=== PATIENT | male | born 1995 | race Caucasian/White ===

== ENCOUNTER 2020-01-18 23:41 | Emergency (ER) | payer SELFPAY ==
--- NOTE | 2020-01-18 23:47 | CTR_ITS ---
PROCEDURE INFORMATION: Exam: CT Head Without Contrast Exam date and time: 01/18/2020 12:12 AM Age: 24 years old Clinical indication: Injury or trauma; Other: Hit head/seizure after; Blunt trauma (contusions or hematomas); Consciousness not specified; Altered mental status/memory loss; Additional info: Head injury + sz TECHNIQUE: Imaging protocol: Computed tomography of the head without contrast. Radiation optimization: All CT scans at this facility use at least one of these dose optimization techniques: automated exposure control; mA and/or kV adjustment per patient size (includes targeted exams where dose is matched to clinical indication); or iterative reconstruction. ADDITIONAL STUDY INFORMATION: Total DLP (mGy-cm): 983.9 COMPARISON: CT head wo con* [id number] 12/08/2018 4:27 AM FINDINGS: Examination is limited by artifacts from patient motion. Evaluation of the brain demonstrates no convincing areas of abnormal density when allowing for artifacts from patient motion. Size of ventricular system appears within normal limits for the patient's stated age. No definite depressed calvarial fracture is demonstrated. Rounded density in each maxillary sinus is most compatible with polyp or retention cyst. Visualized mastoid air cells demonstrate no significant opacification. CT/CT head wo con* [id number] IMPRESSION: No definite acute intracranial process is demonstrated when allowing for artifacts from patient motion. Radiation Dose CTDIVOL = (mGy): DLP = 983.9 (mGy-cm)
[2020-01-18 23:50] VITALS: BP 165/95; PULSE 78; RESP 26; TEMP 36.9; O2SAT 97; BMI 38.5
--- NOTE | 2020-01-18 23:54 | CTR_ITS ---
PROCEDURE INFORMATION: Exam: CT Cervical Spine Without Contrast Exam date and time: 01/18/2020 12:12 AM Age: 24 years old Clinical indication: Pain and injury or trauma; Other: Hit head/seizure after; Blunt trauma; Neck pain TECHNIQUE: Imaging protocol: Computed tomography images of the cervical spine without contrast. Radiation optimization: All CT scans at this facility use at least one of these dose optimization techniques: automated exposure control; mA and/or kV adjustment per patient size (includes targeted exams where dose is matched to clinical indication); or iterative reconstruction. ADDITIONAL STUDY INFORMATION: Total DLP (mGy-cm): 1098.87 COMPARISON: CT Cervical Spine wo* [id number] 01/19/2018 2:04 AM FINDINGS: Alignment of cervical bodies appears within normal limits. Height of cervical bodies appears within normal limits. Straightening of the cervical spine may be due to muscle spasm. No convincing acute fracure is demonstrated. Assessment cannot be made of the cervical spinal canal or its contents. Consider MRI of cervical spine for further assessment if clinically warranted, particularly for further assessment of the spinal canal and its contents, spinal cord, nerve roots, intervertebral disks, ligaments, other spinal soft tissues, bone edema, etc., if patient has no contraindication to MRI. CT/CT cervical spin wo con* [id number] IMPRESSION: No acute fracture is demonstrated. Radiation Dose CTDIVOL = (mGy): DLP = 1098.87 (mGy-cm)
--- NOTE | 2020-01-19 00:01 | W.ED.SEIZURE ---
HPI - Seizure General: Chief Complaint: Seizure Stated Complaint: Seizure Time Seen by Provider: 01/18/20 23:55 History of Present Illness: HPI Narrative: 24-year-old male patient presents to the emergency department status post head injury. He was bending over picking up groceries in the refrigerator when he tan up and hit his head on the freezer door. His reports loss of consciousness for 2-1/2 minutes. He has not experienced vomiting. She reports seizure activity, uncontrolled shaking, she states to call 911, he was evaluated by EMS, patient declined EMS transport to the hospital, spouse was able to transport him via POV. He was able to ambulate to the car with assistance. He is complaining of headache. 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) Description of Episode: loss of consciousness and post-event confusion Witnessed: Yes - by Bystander (spouse) Trauma: No Seizure History: Yes Place: Home Possible Precipitating Event: head injury Associated symptoms: Reports confusion; Deny chest pain, chills, diaphoresis or fever(s) Treatments prior to arrival: none Review of Systems General: Reports: 10 or more systems reviewed and unremarkable except in HPI and below Const: Denies: fever(s), chills or diaphoresis Eyes: Denies: blurry vision or eye redness ENMT: Denies: throat pain, dental pain or disequilibrium Card: Denies: chest pain, palpitations or irregular heart rhythm Resp: Denies: dyspnea, productive cough, non-productive cough or wheezing GI: Denies: abdominal pain, nausea or vomiting : Denies: dysuria Musc: Reports: neck pain; Denies: back pain, extremity pain or joint warmth Skin/Breast: Denies: rash or pruritus Neuro: Reports: confusion Psych: Reports: other (post steroid reaction, psychosis per psouse) Polo/Lymph: Denies: easy bruising Physical Exam Const: COMMON NORMALS: alert EXAM LIMITATIONS: altered mental status GENERAL APPEARANCE: cooperative, anxious and well hydrated NUTRITIONAL APPEARANCE: obese ORIENTATION/CONSCIOUSNESS: Yes awake, Yes oriented to person and Yes confused HENMT: COMMON NORMALS: normocephalic, Normal external nose present and moist oral mucous membranes HEAD & SCALP: normocephalic NOSE: Normal external nose present Eye: COMMON NORMALS: Equal, round and reactive pupils present, EOMs intact bilaterally and conjunctivae normal GENERAL EYE: appearance normal, both eyes and all related structures ALIGNMENT: Yes alignment normal PERIORBITAL: periorbital findings normal CONJUNCTIVA: Yes conjunctivae normal SCLERA: sclerae normal PUPIL: Yes Equal, round and reactive pupils present, Yes pupil size - right Right pupil size (mm): 4 and Yes pupil size - left Left pupil size (mm): 4 Neck/C-Spine: COMMON NORMALS: full ROM and no lymphadenopathy GENERAL: Yes normal visual inspection and Yes trachea midline CERVICAL SPINE: Yes pain with cervical ROM, Yes Cervical spine tenderness C2, C3, C4 and C5, No Paracervical muscle tenderness, No Trapezius muscle tenderness and Yes collar present Lymph: LYMPHATIC: no lymphadenopathy noted Chest: COMMONS NORMALS: normal inspection of the chest Resp: COMMON NORMALS: normal respiratory effort and clear to auscultation bilaterally AUSCULTATION: clear to auscultation bilaterally Cardio: COMMON NORMALS: regular rhythm, S1 normal heart sound present, S2 normal heart sound present and Peripheral pulses 2+ throughout RHYTHM: regular rhythm HEART SOUNDS: S1 normal heart sound present and S2 normal heart sound present PERIPHERAL PULSES: Peripheral pulses 2+ throughout GI: COMMON NORMALS: Soft to palpation and non-tender INSPECTION: Yes normal to inspection PALPATION: Yes Soft to palpation : COMMON NORMALS: Yes no CVA tenderness BLADDER/KIDNEY EXAM: Yes no CVA tenderness Back/Pelvis: COMMON NORMALS: no CVA tenderness and thoracic and lumbar spine normal to inspection Extremity: COMMON NORMALS: normal to inspection and capillary refill normal GENERAL: Yes normal exam except as noted Neuro: LEO COMA SCALE: document GCS findings Leo coma scale eye opening: Spontaneous [place] coma scale verbal response: Confused Leo coma scale motor response: Obey commands Leo coma scale total score: 14 COMMON NORMALS: moves all extremities and no focal motor deficits SENSORIUM/ORIENTATION: Yes alert and Yes oriented to person SPEECH: speech normal MOTOR EXAM: 5/5 motor strength present throughout and Other motor observations present (hand grasp 5/5) PUPIL EXAM: Normal pupillary reactivity/response: right and left Psych: COMMON NORMALS: mental status grossly normal, Normal thought process present and cooperative ACTIVITY/MOTOR BEHAVIOR: Yes appropriate eye contact THOUGHT PROCESS: Normal thought process present Skin: COMMON NORMALS: no rashes or lesions noted and turgor normal GENERAL SKIN EXAM: no rashes or lesions noted and turgor normal Course ED course: 24-year-old male patient presents to the emergency department with head injury, positive syncope/LOC with questionable seizure activity per . EMS was called, spouse transported patient to the hospital. CT scan of the head negative for intracranial abnormality, cervical spine negative for acute fracture. Serology testing normal. He reports THC use occasionally. During his stay, confusion cleared, [place] Coma Scale 15, able to recall events that occurred prior to his arrival to the ED as well as events immediately prior to the head injury. He did not exhibit vomiting, able to tolerate p.o. fluids here in the ED. He was able to ambulate without difficulty. Discussed need to return to the emergency department if he develops worsening of his life, spontaneous vomiting, personality change or other neurological deviations. Spouse verbalized understanding, he will be taken off work tomorrow advised to stay at home and rest. Vital Signs: Vital signs: Vital Signs Temperature 98.4 F 01/18/20 23:50 Pulse Rate 78 01/18/20 23:50 Respiratory Rate 26 H 01/18/20 23:50 Blood Pressure 165/95 01/18/20 23:50 Pulse Oximetry 97 01/18/20 23:50 MDM - Seizure Lab Data: Labs: Lab Results 01/19/20 01/19/20 01/19/20 Range/Units 00:49 00:49 01:29 WBC 8.9 (4.0-10.0) 10^3/ uL RBC 4.90 (4.1-5.3) 10^6/u L Hgb 14.4 (11.7-16.6) g/dL Hct 43.6 (42.0-52.0) % MCV 89.0 (80-94) fL MCH 29.4 (28.0-34.0) pg MCHC 33.0 (30.0-36.0) g/dL RDW 12.2 (12.1-15.1) % Plt Count 220 (130-400) 10^3/c mm MPV 12.0 H (7.4-10.4) fL Neut % (Auto) 53.3 % Lymph % (Auto) 33.9 % [place] % (Auto) 10.5 % Eos % (Auto) 1.6 % Baso % (Auto) 0.5 % Neut # (Auto) 4.72 (1.8-7.7) 10^3/u L Lymph # (Auto) 3.0 (0.8-4.8) 10^3/u L [place] # (Auto) 0.9 (0.2-0.9) 10^3/u L Eos # (Auto) 0.1 (0.0-0.8) 10^3/u L Baso # (Auto) 0.0 (0.0-0.1) 10^3/u L Nucleated RBC % (a uto) 0 % Nucleated RBCs # 0.0 /100WBC Sodium 141 (136-145) mmol/L Potassium 3.9 (3.5-5.1) mmol/L Chloride 105 (98-107) mmol/L Carbon Dioxide 25 (22-29) mmol/L Anion Gap 14.9 (5-19) BUN 22 H (6-20) mg/dL Creatinine 0.9 (0.7-1.2) mg/dL GFR Calculation 103.7 (90-130) mL/min Glucose 75 (65-115) mg/dL Calculated Osmolal ity 294 (285-295) mOsm/k g Calcium 10.0 (8.5-10.5) mg/dL Urine Opiates Scre en Negative (Negative) ng/mL Ur Barbiturates Sc reen Negative (Negative) ng/mL Ur Phencyclidine S crn Negative (Negative) ng/mL Ur Amphetamines Sc reen Negative (Negative) ng/mL U Benzodiazepines Scrn Negative (Negative) ng/mL Urine Cocaine Scre en Negative (Negative) ng/mL U Marijuana (THC) Screen Positive H (Negative) ng/mL Imaging Data^: Other CT: Radiologist's impression: [address] [place] [address] CT Scan Report Signed Patient: Scooby Quiroga BUnit #: [id number] : 1995Acct#:[id number] Age/Sex: 24 / MADM Date: 01/18/20 Loc: ERRoom/Bed: Attending Dr: Ordering Provider/Ordering MD: Marixa Murdock Date of Service: 01/18/20 Procedure(s): CT cervical spin wo con* [id number] Accession Number(s): [id number] Report Number: [id number] PROCEDURE INFORMATION: Exam: CT Cervical Spine Without Contrast Exam date and time: 01/18/2020 12:12 AM Age: 24 years old Clinical indication: Pain and injury or trauma; Other: Hit head/seizure after; Blunt trauma; Neck pain TECHNIQUE: Imaging protocol: Computed tomography images of the cervical spine without contrast. Radiation optimization: All CT scans at this facility use at least one of these dose optimization techniques: automated exposure control; mA and/or kV adjustment per patient size (includes targeted exams where dose is matched to clinical indication); or iterative reconstruction. ADDITIONAL STUDY INFORMATION: Total DLP (mGy-cm): 1098.87 COMPARISON: CT Cervical Spine wo* [id number] 01/19/2018 2:04 AM FINDINGS: Alignment of cervical bodies appears within normal limits. Height of cervical bodies appears within normal limits. Straightening of the cervical spine may be due to muscle spasm. No convincing acute fracure is demonstrated. Assessment cannot be made of the cervical spinal canal or its contents. Consider MRI of cervical spine for further assessment if clinically warranted, particularly for further assessment of the spinal canal and its contents, spinal cord, nerve roots, intervertebral disks, ligaments, other spinal soft tissues, bone edema, etc., if patient has no contraindication to MRI. CT/CT cervical spin wo con* [id number] IMPRESSION: No acute fracture is demonstrated. Radiation Dose CTDIVOL = (mGy): DLP = 1098.87 (mGy-cm) Dictated By:Keisha Bob MD Signed By:Keisha Bob MDSigned Date/Time:01/19/20115 DD/ 3 CT Head: Radiologist's impression: [address] [address] [address] Scan Report Signed Patient: Scooby Quiroga Unit #: [id number] : 1995 Age/Sex: 24 / M ADM Date: 01/18/20 Loc: ER Room/Bed: Attending Dr: Ordering Provider/Ordering MD: Marixa Murdock Date of Service: 01/18/20 Procedure(s): CT head wo con* [id number] Accession Number(s): [id number] Report Number: [id number] PROCEDURE INFORMATION: Exam: CT Head Without Contrast Exam date and time: 01/18/2020 12:12 AM Age: 24 years old Clinical indication: Injury or trauma; Other: Hit head/seizure after; Blunt trauma (contusions or hematomas); Consciousness not specified; Altered mental status/memory loss; Additional info: Head injury + sz TECHNIQUE: Imaging protocol: Computed tomography of the head without contrast. Radiation optimization: All CT scans at this facility use at least one of these dose optimization techniques: automated exposure control; mA and/or kV adjustment per patient size (includes targeted exams where dose is matched to clinical indication); or iterative reconstruction. ADDITIONAL STUDY INFORMATION: Total DLP (mGy-cm): 983.9 COMPARISON: CT head wo con* [id number] 12/08/2018 4:27 AM FINDINGS: Examination is limited by artifacts from patient motion. Evaluation of the brain demonstrates no convincing areas of abnormal density when allowing for artifacts from patient motion. Size of ventricular system appears within normal limits for the patient's stated age. No definite depressed calvarial fracture is demonstrated. Rounded density in each maxillary sinus is most compatible with polyp or retention cyst. Visualized mastoid air cells demonstrate no significant opacification. CT/CT head wo con* [id number] IMPRESSION: No definite acute intracranial process is demonstrated when allowing for artifacts from patient motion. Radiation Dose CTDIVOL = (mGy): DLP = 983.9 (mGy-cm) Dictated By: Keisha Bob MD Signed By: Keisha Bob MD Signed Date/Time: 01/19/20101 DD/ 0 Discharge Plan Discharge Patient Disposition: Home Clinical Impression: Head injury Qualifiers: Encounter type: initial encounter Qualified Code(s): S09.90XA - Unspecified injury of head, initial encounter Cervical muscle strain Qualifiers: Encounter type: initial encounter Qualified Code(s): S16.1XXA - Strain of muscle, fascia and tendon at neck level, initial encounter Condition: Stable Referrals: Hernesto Lester FNP [Primary Care Provider] - Discharge Diet: Advance as tolerated and Clear Liquid Discharge Activity: Limit activity as instructed Patient Instructions: Concussion/Head Injury - Adult, Concussion (ED) Activity Restrictions/Additional Instructions: 1. Keep head elevated while sleeping or resting, this will help decrease swelling. 2. May apply cool compresses to the affected area, this may help with swelling and pain. Never apply ice directly to the skin. 3 you may take Tylenol/IBuprofen as needed for pain if not allergic or if no history of liver disease. Take according to directions as labeled. 4. If you are taking aspirin or blood thinner such as Eliquis or Xarelto, you will need to hold medication for 2 to 3 days. 5. If you develop the worst headache of your life or if you develop personality change, inability to focus, vomiting, worsening neurological symptoms, you will need to return to the emergency department immediately. 6. Take it easy for the next few days, rest at home today. Avoid exertional exercise for the next 24 to 48 hours. 7. Avoid spicy, greasy foods, eat light meals to avoid upset stomach for the next 24 hour. You may wish to drink clear liquids for the next 6 to 8 hours and advance diet as tolerated. 8. Avoid vigorous activity for the next 24 to 48 hours. 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
[2020-01-19 01:01] LABS: Basophils % 0.5 %; Eosinophils # 0.1 10^3/uL (0.0-0.8); Eosinophils % 1.6 %; Hematocrit 43.6 % (42.0-52.0); Hemoglobin 14.4 g/dL (11.7-16.6); Lymphocytes % 33.9 %; Mean Corpuscular Hemoglobin 29.4 pg (28.0-34.0); Monocytes # 0.9 10^3/uL (0.2-0.9); Monocytes % 10.5 %; Neutrophils # 4.72 10^3/uL (1.8-7.7); Neutrophils % 53.3 %; Nucleated Red Blood Cells % 0 %; Platelet Count 220 10^3/cmm (130-400); Red Cell Distribution Width 12.2 % (12.1-15.1); White Blood Count 8.9 10^3/uL (4.0-10.0)
[2020-01-19 01:16] LABS: Anion Gap 14.9 (5-19); Blood Urea Nitrogen 22 mg/dL (6-20); Carbon Dioxide 25 mmol/L (22-29); Chloride 105 mmol/L (98-107); Glomerular Filtration Rate 103.7 mL/min (90-130); Glucose 75 mg/dL (65-115); Osmolality Calculated 294 mOsm/kg (285-295); Potassium 3.9 mmol/L (3.5-5.1); Sodium 141 mmol/L (136-145)
[2020-01-19 01:51] LABS: Amphetamines Screen Urine Negative (Negative); Barbiturates Screen Urine Negative (Negative); Benzodiazepines Screen Urine Negative (Negative); Cocaine Screen Urine Negative (Negative); Opiate Screen Urine Negative (Negative); PCP Screen Urine Negative (Negative); THC Screen Urine Positive (Negative)
[2020-01-19] MEDS: acetaminophen 325 mg Tablet 650 MG PO (01:53)
[2020-01-19 02:13] VITALS: BP 123/78; PULSE 76; RESP 18; O2SAT 99
[2020-01-19 02:15] VITALS: BP 124/86; PULSE 78; RESP 16; O2SAT 99
== END 2020-01-19 02:16 | disposition home or self-care (01) ==
PROVIDERS: Emergency Provider Nurse Practitioner Family; PCP Nurse Practitioner
DX: S09.8XXA Other specified injuries of head, initial encounter (principal); S16.1XXA Strain of muscle, fascia and tendon at neck level, initial encounter; W22.8XXA Striking against or struck by other objects, initial encounter
CPT/HCPCS: 12345; 70450; 72125; 80048; 80306; 85025; 99283

== ENCOUNTER → 2020-02-02 13:03 | Outpatient (BNVA) | payer OTHER, SELFPAY | PROVIDERS: PCP Nurse Practitioner; Visit Provider Nurse Practitioner Family | DX: Z11.59 Encounter for screening for other viral diseases (principal); J06.9 Acute upper respiratory infection, unspecified | CPT/HCPCS: 87635 ==

== ENCOUNTER → 2020-04-11 10:02 | Outpatient (BNVA) | payer OTHER, SELFPAY | PROVIDERS: PCP Nurse Practitioner; Visit Provider Nurse Practitioner Family | DX: Z20.828 Contact with and (suspected) exposure to other viral communicable diseases (principal); J06.9 Acute upper respiratory infection, unspecified | CPT/HCPCS: 87635 ==

== ENCOUNTER 2020-05-08 09:05 | Inpatient (IN) | payer SELFPAY ==
[2020-05-08 09:05] VITALS: BP 148/89; PULSE 87; RESP 18; TEMP 36.7; O2SAT 98; BMI 37.2
--- NOTE | 2020-05-08 09:07 | ED_ITS ---
HPI - Psych General: Chief Complaint: Psychiatric Symptoms Stated Complaint: SI PSYCH EVAL Time Seen by Provider: 05/08/20 09:06 Source: patient and police Mode of arrival: other (police) Limitations: no limitations History of Present Illness: HPI Narrative: Patient is a 24-year-old male who presents to ED today in police custody on a 96-hour hold. According to hold paperwork patient made statements that he did not want to live anymore and wanted to go play chicken with a semi . During my examination patient tells me that he recently lost his grandmother to illness. He states his grandmother was very close to him as she essentially raised him the majority of his life. He states his biological mother is ill in [place] and cannot make the journey to go see her. 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 He states this morning he became angered when he could not find his keys. He states his fianc?e was not helping the situation. He states he began destroying things in their home, making several suicidal statements, and took off walking down the street. Fianc? contacted police who found patient and brought him here. Patient tells me he feels incredibly overwhelmed and has a gloomy outlook towards the future stating nothing will ever get better . He does feel like he wants to . He does not endorse any specific plan to me. He admits to marijuana use but no other drug use. He is not homicidal. He is not experiencing hallucinations. He tells me he suffers from chronic untreated depression. MD complaint: suicidal ideation History of same: Yes Context: significant life stressor Associated psychiatric symptoms: depression and suicidal ideation Associated symptoms: Reports depression and suicidal ideation; Deny auditory hallucinations, visual hallucinations or homicidal ideation Treatments prior to arrival: placed on mental health hold If self harm: admits thoughts of self harm Review of Systems Const: Denies: fever(s) or chills Card: Denies: chest pain, palpitations, lightheadedness or syncope Resp: Denies: dyspnea GI: Denies: abdominal pain, nausea, vomiting or diarrhea Skin/Breast: Denies: rash Neuro: Denies: headache(s) Psych: Reports: anxiety, depression, hopelessness, irritability and suicidal ideation; Denies: visual hallucinations, auditory hallucinations or homicidal ideation Physical Exam Const: COMMON NORMALS: no acute distress, patient oriented x3, no limitations, alert and well nourished GENERAL APPEARANCE: cooperative and well kempt ORIENTATION/CONSCIOUSNESS: Yes awake, Yes oriented to person, Yes oriented to place and Yes oriented to time Resp: COMMON NORMALS: normal respiratory effort and clear to auscultation bilaterally AUSCULTATION: clear to auscultation bilaterally Cardio: COMMON NORMALS: regular rate and regular rhythm RATE: regular rate RHYTHM: regular rhythm Neuro: COMMON NORMALS: patient oriented x3 SENSORIUM/ORIENTATION: Yes alert, Yes oriented to person, Yes oriented to place and Yes oriented to time Psych: COMMON NORMALS: mental status grossly normal, Normal thought process present, cooperative, speech normal, activity/motor behavior normal, denies hallucinations and denies homicidal ideation APPEARANCE: Yes grossly normal and Yes well kempt ATTITUDE: Yes agitated ACTIVITY/MOTOR BEHAVIOR: Yes appropriate eye contact and No psychomotor agitation SPEECH: Yes normal speech MOOD & AFFECT: Yes irritable THOUGHT PROCESS: Normal thought proc ess present THOUGHT CONTENT: Yes Normal thought content present ATTENTION/CONCENTRATION: Yes attention grossly intact and Yes concentration grossly intact MEMORY/COGNITION: Yes memory grossly intact and Yes cognition grossly intact INSIGHT: Good insight present (Psych) JUDGEMENT: Good judgement present (Psych) MDM - Psych Lab Data: Labs: Lab Results 05/08/20 05/08/20 05/08/20 Range/Units 09:30 09:30 09:45 WBC 7.7 (4.0-10.0) 10^3/ uL RBC 5.05 (4.1-5.3) 10^6/u L Hgb 14.9 (11.7-16.6) g/dL Hct 48.7 (42.0-52.0) % MCV 96.4 H (80-94) fL MCH 29.5 (28.0-34.0) pg MCHC 30.6 (30.0-36.0) g/dL RDW 12.5 (12.1-15.1) % Plt Count 181 (130-400) 10^3/c mm MPV 12.4 H (7.4-10.4) fL Neut % (Auto) 69.5 % Lymph % (Auto) 21.1 % [place] % (Auto) 7.2 % Eos % (Auto) 1.6 % Baso % (Auto) 0.5 % Neut # (Auto) 5.37 (1.8-7.7) 10^3/u L Lymph # (Auto) 1.6 (0.8-4.8) 10^3/u L [place] # (Auto) 0.6 (0.2-0.9) 10^3/u L Eos # (Auto) 0.1 (0.0-0.8) 10^3/u L Baso # (Auto) 0.0 (0.0-0.1) 10^3/u L Nucleated RBC % (a uto) 0 % Nucleated RBCs # 0.0 /100WBC Sodium 138 (136-145) mmol/L Potassium 4.3 (3.5-5.1) mmol/L Chloride 109 H (98-107) mmol/L Carbon Dioxide 19 L (22-29) mmol/L Anion Gap 14.3 (5-19) BUN 15 (6-20) mg/dL Creatinine 0.7 (0.7-1.2) mg/dL GFR Calculation 138.6 H (90-130) mL/min Glucose 93 (65-115) mg/dL Calculated Osmolal ity 287 (285-295) mOsm/k g Calcium 9.3 (8.5-10.5) mg/dL Total Bilirubin 0.2 (0.15-1.2) mg/dL AST 16 (0-40) U/L ALT 17 (0-41) U/L Alkaline Phosphata se 78 (40-130) IU/L Total Protein 7.6 (6.6-8.7) g/dL Albumin 4.4 (3.5-5.2) g/dL Globulin 3.2 (1.3-4.6) g/dL Salicylates < 0.3 L (3-10) mg/dL Urine Opiates Scre en Negative (Negative) ng/mL Acetaminophen < 5.0 L (10-30) ug/mL Ur Barbiturates Sc reen Negative (Negative) ng/mL Ur Phencyclidine S crn Negative (Negative) ng/mL Ur Amphetamines Sc reen Negative (Negative) ng/mL U Benzodiazepines Scrn Negative (Negative) ng/mL Urine Cocaine Scre en Negative (Negative) ng/mL U Marijuana (THC) Screen Positive H (Negative) ng/mL Ethyl Alcohol < 10 (0-10) mg/dL Discharge Plan Discharge Patient Disposition: Admitted As Inpatient Clinical Impression: Suicidal ideation, Involuntary commitment Condition: Stable Coding Level of Care Code 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
--- NOTE | 2020-05-08 09:33 | PC.NURSE ---
PT IS REFUSING TO CHANGE INTO SCRUBS AT THIS TIME. PT STATES THAT HE WILL NOT PT STATES THAT HE WANTS TO LEAVE. PT WAS INFORMED THAT THE PA WAS PLACING HIM ON A 96 HOUR HOLD AND HE WOULD NOT BE ALLOWED TO LEAVE. PT IS NOT PHYSICALLY AGGRESSIVE AT THIS TIME BUT IS VERBALLY HOSTILE. SECURITY IS READMIT AVAILABLE AND BACK UP IS ON THE WAY.
--- NOTE | 2020-05-08 09:49 | PC.NURSE ---
PT UP TO THE BATHROOM. PT WAS UPSET THAT I HAD TO DERRICK WORKER THE DOOR WHILE HE URINATED. PT IS STILL REFUSING TO CHANGE INTO SCRUBS.
[2020-05-08 10:03] LABS: Basophils % 0.5 %; Eosinophils # 0.1 10^3/uL (0.0-0.8); Eosinophils % 1.6 %; Hematocrit 48.7 % (42.0-52.0); Hemoglobin 14.9 g/dL (11.7-16.6); Lymphocytes # 1.6 10^3/uL (0.8-4.8); Lymphocytes % 21.1 %; Mean Corpuscular HGB Conc 30.6 g/dL (30.0-36.0); Mean Corpuscular Hemoglobin 29.5 pg (28.0-34.0); Mean Corpuscular Volume 96.4 fL (80-94); Mean Platelet Volume 12.4 fL (7.4-10.4); Monocytes # 0.6 10^3/uL (0.2-0.9); Monocytes % 7.2 %; Neutrophils # 5.37 10^3/uL (1.8-7.7); Neutrophils % 69.5 %; Nucleated Red Blood Cells % 0 %; Platelet Count 181 10^3/cmm (130-400); Red Blood Count 5.05 10^6/uL (4.1-5.3); Red Cell Distribution Width 12.5 % (12.1-15.1); White Blood Count 7.7 10^3/uL (4.0-10.0)
[2020-05-08 10:22] LABS: Alanine Aminotransferase 17 U/L (0-41); Albumin Level 4.4 g/dL (3.5-5.2); Alkaline Phosphatase 78 IU/L (40-130); Aspartate Amino Transferase 16 U/L (0-40); Blood Urea Nitrogen 15 mg/dL (6-20); Calcium 9.3 mg/dL (8.5-10.5); Carbon Dioxide 19 mmol/L (22-29); Chloride 109 mmol/L (98-107); Globulin 3.2 g/dL (1.3-4.6); Glomerular Filtration Rate 138.6 mL/min (90-130); Glucose 93 mg/dL (65-115); Osmolality Calculated 287 mOsm/kg (285-295); Slide Review Slide Review Perform; Sodium 138 mmol/L (136-145); Total Bilirubin 0.2 mg/dL (0.15-1.2); Total Protein 7.6 g/dL (6.6-8.7)
[2020-05-08] MEDS: LORazepam 1 mg Tablet PO (10:24)
[2020-05-08 10:26] LABS: Acetaminophen < 5.0 ug/mL (10-30); Alcohol Level < 10 mg/dL (0-10); Anion Gap 14.3 (5-19); Potassium 4.3 mmol/L (3.5-5.1); Salicylate < 0.3 mg/dL (3-10)
[2020-05-08 10:41] LABS: Amphetamines Screen Urine Negative (Negative); Barbiturates Screen Urine Negative (Negative); Benzodiazepines Screen Urine Negative (Negative); Cocaine Screen Urine Negative (Negative); Opiate Screen Urine Negative (Negative); PCP Screen Urine Negative (Negative); THC Screen Urine Positive (Negative)
[2020-05-08 11:14] VITALS: BP 132/77; PULSE 65; RESP 14; O2SAT 98
[2020-05-08 12:25] VITALS: BP 134/82; PULSE 61; RESP 16; O2SAT 99
[2020-05-08 12:37] VITALS: BP 134/91; PULSE 72; RESP 18; TEMP 35.8; O2SAT 95
[2020-05-08 14:00] VITALS: BP 134/91; PULSE 72; RESP 18; TEMP 35.8; O2SAT 95
--- NOTE | 2020-05-08 19:01 | PC.NURSE ---
PATIENT WANTING TO BE DISCHARGED TO TAKE A FLIGHT OUT SOON POSSIBLE TO BE WITH HIS FAMILY IN [place] DUE TO THE PASSING OF HIS GRANDMA, WHO RAISED HIM. PATIENT REPORTS TO THIS NURSING AGENCY MANAGER AND PHYSICIAN THAT HE IS JUST OVERWHELMED WITH THE LOSS OF HIS GRANDMA AND PROBABLE LOSS OF HIS JOB, THAT HE SNAPPED THIS MORNING AND SAID THINGS HE DIDNT MEAN. SPOKE WITH GIRLFRIEND THAT HES LIVED WITH FOR THE PAST FOUR YEARS, WHO FEELS HE IS SAFE TO LEAVE AND HE WAS JUST FRUSTRATED WITH EVERYTHING GOING ON. PHYSICIAN AWARE. WILL CONT TO MONITOR AND SUPPORT
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
[2020-05-08 20:25] VITALS: BP 142/83; PULSE 60; RESP 18; TEMP 36.3; O2SAT 97
[2020-05-08] MEDS: hyDROXYzine 25 mg Capsule 50 MG PO (21:39)
[2020-05-08] MEDS: trazodone 50 mg Tablet PO (21:39)
[2020-05-09 06:00] VITALS: BP 127/79; PULSE 84; RESP 17; TEMP 36.2; O2SAT 97
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
[2020-05-09 07:27] VITALS: BP 127/79; PULSE 84; RESP 17; TEMP 36.2; O2SAT 97
== END 2020-05-09 07:35 | disposition home or self-care (01) | DRG 882 ==
LOC: ER 10:34 → NP 11:54
PROVIDERS: Admitting Provider Psychiatry & Neurology Psychiatry; Emergency Provider Physician Assistant; PCP Nurse Practitioner; Visit Provider Psychiatry & Neurology Psychiatry
DX: F43.25 Adjustment disorder with mixed disturbance of emotions and conduct (principal); F33.2 Major depressive disorder, recurrent severe without psychotic features; R45.851 Suicidal ideations; F41.9 Anxiety disorder, unspecified; F15.11 Other stimulant abuse, in remission; Z81.8 Family history of other mental and behavioral disorders; F12.10 Cannabis abuse, uncomplicated; F43.10 Post-traumatic stress disorder, unspecified; Z63.4 Disappearance and death of family member; F63.9 Impulse disorder, unspecified
CPT/HCPCS: 12345; 80053; 80306; 80307; 85025; 99284